=== PATIENT | male | born 1960 | race African-American/Black ===

== ENCOUNTER 2017-09-19 13:17 | Emergency (ER) | payer MEDICAID ==
[~2017-09-19] VITALS: Ht 182.9 cm; Wt 111.1 kg
[~2017-09-19 13:17] MED LIST: UNOBMED
[2017-09-19 13:38] VITALS: BP 174/87
[2017-09-19] MEDS ORDERED: Dexamethasone 4mg/ml vial IM ONE (14:00)
[2017-09-19] MEDS ORDERED: Lidocaine 1% MPF 10mg/ml 5ml INJ ONE (14:00)
[2017-09-19] MEDS ORDERED: PROMETHAZI6.25 MG/1 ORAL (14:08)
[2017-09-19] MEDS ORDERED: AMOXICILLIN500 MG ORAL (14:08)
[2017-09-19] MEDS ORDERED: IBUPROFEN600 MG ORAL (14:08)
--- NOTE | 2017-09-19 14:27 | Emergency Room Report ---
History of Present Illness General Chief Complaint: Sore Throat Source: Patient Present Illness HPI 57 yo male presents to ED complaining of sore throat and fever x5 days. Patient reports fever was 101.4 this morning. Patient reports taking Theraflu and Ibuprofen yesterday with mild relief of symptoms; patient reports taking no medications today prior to arrival at ED. Patient also complains of pain with swallowing food. Patient also complains of dry cough. Patient reports only drinking water during this time secondary to pain. Patient denies voice changes. Patient reports sick contacts. Patient denies chest pain, SOB, rash. Allergies: Coded Allergies: No Known Allergies (Unverified , 05/05/14) Patient History Past Medical History: none Past Surgical History: none Pertinent Family History: none Social History: Denies: smoking, alcohol use, drug use Immunizations: UTD Reviewed Nursing Documentation: PMH: Agreed, PSxH: Agreed Nursing Documentation-PMH Past Medical History: No History, Except For Hx Hypertension: Yes Review of Systems All Other Systems: negative except mentioned in HPI Physical Exam Vital Signs Date Time Temp Pulse Resp B/P (MAP) Pulse Ox O2 Delivery O2 Flow Rate FiO2 09/19/17 13:28 99.9 108 19 174/87 96 Room Air Sp02 EP Interpretation: reviewed, normal General Appearance: normal inspection, well appearing, alert, mild distress Head: normocephalic, atraumatic Eyes: bilateral eye normal inspection, bilateral eye PERRL ENT: hearing grossly normal, normal voice, TMs + canals normal, uvula midline, moist mucus membranes, nasal congestion, tonsillar swelling - right, pharyngeal erythema, tonsillar exudate - white Neck: full range of motion, supple Respiratory: chest non-tender, lungs clear, normal breath sounds, no accessory muscle use, no wheezing, speaking full sentences Cardiovascular #1: regular rate, rhythm, no edema, no murmur, no rub Neurologic: alert, oriented x3, responsive, motor strength/tone normal, sensory intact, speech normal Skin: normal color, no rash, warm/dry, well hydrated Lymphatic: adenopathy - cervical lymph node swelling Medical Decision Making PA Attestation Dr. Gonzalez is my supervising physician. Patient management was discussed with my supervising physician. Diagnostic Impression: Primary Impression: Pharyngitis Qualified Codes: J02.9 - Acute pharyngitis, unspecified ER Course Pt presents to ED c/o sore throat and fever. DDX considered but are not limited to pharyngitis, laryngitis, URI, peritonsillar abscess, tonsillitis. VITAL SIGNS are WNL, patient is afebrile. H&PE are most consistent with pharyngitis. ORDERS: None required at this time, diagnosis is clinical. ED INTERVENTIONS: -Rocephin -Dexamethasone DISCHARGE: At this time pt is stable for d/c to home. Will provide with patient care instructions and any necessary prescriptions. Patient to take medication as instructed. Care plan and follow-up instructions provided. Patient questions asked and answered. Patient instructed to follow-up with primary care provider in 3 - 5 days. ER precautions given. Patient instructed to return to ER immediately for any new or worsening of symptoms. Last Vital Signs Date Time Temp Pulse Resp B/P (MAP) Pulse Ox O2 Delivery O2 Flow Rate FiO2 09/19/17 13:38 99.9 19 174/87 96 Room Air 09/19/17 13:28 108 Status: improved Disposition: HOME, SELF-CARE Condition: Improved Scripts Promethazine Hcl (PROMETHAZINE HCL*) 6.25 Mg/5 Ml Syrup 5 ML ORAL Q8H, #120 ML 0 Refills Prov: Devyn Sanchez 09/19/17 Ibuprofen* (MOTRIN*) 600 Mg Tablet 600 MG ORAL Q8H Y for For Pain, #30 TAB 0 Refills Prov: Devyn Sanchez 09/19/17 Amoxicillin* (AMOXIL*) 500 Mg Capsule 500 MG ORAL EVERY 12 HOURS, #20 CAP Prov: Devyn Sanchez 09/19/17 Patient Instructions: Sore Throat Additional Instructions: At this time pt is stable for d/c to home. Will provide with patient care instructions and any necessary prescriptions. Patient to take medication as instructed. Care plan and follow-up instructions provided. Patient questions asked and answered. Patient instructed to follow-up with primary care provider in 3 - 5 days. ER precautions given. Patient instructed to return to ER immediately for any new or worsening of symptoms. Devyn Sanchez Sep 19, 2017 14:27
[2017-09-19 14:35] VITALS: BP 148/102
== END 2017-09-19 14:35 | disposition home or self-care (01) ==
LOC: EMR 14:35
DX: J02.9 Acute pharyngitis, unspecified (principal); I10 Essential (primary) hypertension
CPT/HCPCS: 96372; 99284; J0696; J1100

== ENCOUNTER 2019-05-06 00:26 | Emergency (ER) | payer MEDICAID, OTHER ==
[~2019-05-06] VITALS: Ht 182.9 cm; Wt 111.1 kg
[~2019-05-06 00:26] MED LIST changes: +AMOXICILLIN500 MG ORAL; +IBUPROFEN600 MG ORAL; +PROMETHAZI6.25 MG/1 ORAL
[2019-05-06 00:44] VITALS: BP 140/89
--- NOTE | 2019-05-06 00:44 | NUR ---
ED Nurse Note: pt walked in to ED C/O tingling feeling to left arm for about a month. pt is able to move bilateral arms without difficulties. pt is alert x4. VSS
[2019-05-06 01:10] VITALS: BP 144/76
[2019-05-06] MEDS ORDERED: GABAPENTIN100 MG ORAL (01:10)
--- NOTE | 2019-05-06 01:10 | NUR ---
ER DISCHARGE NOTE: Patient is cleared to be discharged per ERMD, pt is aox4, on room air, with stable vital signs. pt was given dc and prescription instructions, pt was able to verbalize understanding, pt id band removed without complications. pt is able to ambulate with steady gait. pt took all belongings.
--- NOTE | 2019-05-06 04:19 | Emergency Room Report ---
History of Present Illness General Chief Complaint: General Complaint Source: Patient Present Illness HPI 59-year-old male presents ED for evaluation. Describes tingling sensation in his arm for the last 1 year. Comes and goes. Denies any symptoms at this time. Denies any weakness. Denies any slurred speech or facial droop. States he has had x-rays done on this arm previously which were normal. Nuys neck pain. No other aggravating relieving factors. Denies any other associated symptoms Allergies: Coded Allergies: No Known Allergies (Unverified , 05/05/14) Patient History Past Medical History: HTN Past Surgical History: none Pertinent Family History: none Social History: Denies: smoking, alcohol use, drug use Immunizations: UTD Reviewed Nursing Documentation: PMH: Agreed; PSxH: Agreed Nursing Documentation-PMH Past Medical History: No History, Except For Hx Hypertension: Yes Review of Systems All Other Systems: negative except mentioned in HPI Physical Exam Vital Signs Date Time Temp Pulse Resp B/P (MAP) Pulse Ox O2 Delivery O2 Flow Rate FiO2 05/06/19 00:39 98.8 81 18 143/89 (107) 95 Room Air 05/06/19 00:44 99 Sp02 EP Interpretation: reviewed, normal General Appearance: no apparent distress, alert, GCS 15, non-toxic Head: normocephalic Eyes: bilateral eye normal inspection, bilateral eye PERRL ENT: normal ENT inspection Neck: full range of motion, supple, no meningismus, supple/symm/no masses Respiratory: normal inspection Cardiovascular #1: normal inspection Gastrointestinal: normal inspection Rectal: deferred Genitourinary: no CVA tenderness Musculoskeletal: back normal, gait/station normal, normal range of motion, non- tender Neurologic: alert, oriented x3, responsive, motor strength/tone normal, sensory intact, speech normal Psychiatric: normal inspection Skin: no rash Lymphatic: normal inspection Medical Decision Making Diagnostic Impression: Primary Impression: Radiculopathy Qualified Codes: M54.12 - Radiculopathy, cervical region ER Course Hospital Course 59 yo M presents with tingling in LUE x 1 year Differential diagnoses include: radiculopathy, neuropathy, strain Clinical course Patient placed on stretcher. After initial history, physical exam reveals an middle-aged male in no acute distress. There is no decreased range of motion. There is no sensory deficit. 5 out of 5 motor strength. No neck pain. I discussed findings with patient. I do not suspect acute process such as CVA as patient has had the symptoms for 1 year. Likely neuropathy versus radiculopathy. Will discharge home with short course of gabapentin. Will provide orthopedic referrals. Safe for discharge for close outpatient follow- up Diagnosis - radiculopathy stable and discharged to home with prescription for neurontin. Followup with PMD/ortho. Return to ED if symptoms recur or worsen Last Vital Signs Date Time Temp Pulse Resp B/P (MAP) Pulse Ox O2 Delivery O2 Flow Rate FiO2 05/06/19 01:10 98.4 83 18 144/76 97 Room Air 99 83 Status: improved Disposition: HOME, SELF-CARE Condition: Stable Scripts Gabapentin* (GABAPENTIN*) 100 Mg Capsule 100 MG ORAL THREE TIMES A DAY, #15 CAP Prov: Varghese Ríos MD 05/06/19 Referrals: Michael Do MD (PCP) [facility] Open 24 hour /7 days a week by Appointment Only [address] [facility] [address] [facility] [id number] Patient Instructions: Cervical Radiculopathy, [id number] Varghese Ríos MD May 06, 2019 04:19
== END 2019-05-06 01:10 | disposition home or self-care (01) ==
LOC: EMR 00:57
DX: M54.12 Radiculopathy, cervical region (principal); I10 Essential (primary) hypertension
CPT/HCPCS: 99282